=== PATIENT | female | born 1985 | race Caucasian/White ===

== ENCOUNTER 2021-07-22 09:51 | Emergency (ER) | payer MEDICAID ==
[~2021-07-22] VITALS: Ht 154.9 cm; Wt 52.0 kg
[2021-07-22] MEDS ORDERED: IBUPROFEN 600MG TABLET PO ONE (10:45)
[2021-07-22] MEDS ORDERED: OFLO5DRO4 LEFT EAR (10:48)
[2021-07-22 11:21] VITALS: BP 137/69
== END 2021-07-22 11:24 | disposition home or self-care (01) ==
LOC: ER 09:51
DX: H60.92 Unspecified otitis externa, left ear (principal)
CPT/HCPCS: 99282